=== PATIENT | female | born 1970 | race Caucasian/White ===

== ENCOUNTER 2023-03-14 12:42 | Emergency (ER) | payer OTHER ==
[~2023-03-14] VITALS: Ht 152.4 cm; Wt 63.5 kg
[~2023-03-14 12:42] MED LIST: DIPHENOXYLATE-A1 TA1 PO; FLOVENT 110MCG7.9 GM IH; GILTUSS LIQUID237 M1 PO; MECLIZINE HCL25 MG PO; PROTONIX40 MG PO; PROVENTIL HFA6.7 GM IH; PROVENTIL3 ML/2.5 M IH; ZITHROMAX500 MG PO
== END 2023-03-14 16:11 | disposition home or self-care (01) ==
LOC: ER 12:42
DX: T78.49XA Other allergy, initial encounter (principal); X58.XXXA Exposure to other specified factors, initial encounter; Z91.013 Allergy to seafood; Z91.018 Allergy to other foods